=== PATIENT | male | born 1960 | race Two or more races ===

== ENCOUNTER 2019-10-01 19:56 | Emergency (ER) | payer OTHER ==
[~2019-10-01] VITALS: Ht 165.1 cm; Wt 77.3 kg
[2019-10-01] MEDS ORDERED: CARV6 PO (20:13)
[2019-10-01] MEDS ORDERED: ATOR40TA28 PO (20:13)
[2019-10-01] MEDS ORDERED: LISI-662 PO (20:13)
[2019-10-01] MEDS ORDERED: ASPI-728 PO (20:14)
[2019-10-01 21:45] VITALS: BP 166/79
== END 2019-10-01 22:45 | disposition home or self-care (01) ==
LOC: EMS 19:57
DX: R07.89 Other chest pain (principal); J06.9 Acute upper respiratory infection, unspecified; B97.89 Other viral agents as the cause of diseases classified elsewhere; E78.00 Pure hypercholesterolemia, unspecified; I10 Essential (primary) hypertension; F17.210 Nicotine dependence, cigarettes, uncomplicated; Z95.1 Presence of aortocoronary bypass graft; Z79.899 Other long term (current) drug therapy
CPT/HCPCS: 93005